=== PATIENT | female | born 1950 | race Caucasian/White ===

== ENCOUNTER 2016-12-22 17:01 | Inpatient (IN) | payer BC, OTHER ==
[~2016-12-22] VITALS: Ht 170.2 cm; Wt 83.0 kg
--- NOTE | ~2016-12-22 | EKG ---
[address] [address] ELECTROCARDIOGRAM REPORT Name: JOSEEFRANSISCO Room #: 206- ADM IN M.R.#: [id number] Admission: 12/22/16 Attend Phys: Arturo Martinez MD, Discharge: Date of : 54 Report #: [id number] THIS REPORT FOR: //name// 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: val : 1950 Requested By: Arturo Martinez Order Number: [id number] MD: Lui Doyle Measurements Intervals [place] Rate: 68 P: 26 LA: 174 QRS: -50 QRSD: 111 T: -50 QT: 494 QTc: 526 Interpretive Statements Sinus rhythm Abnormal R-wave progression, late transition Inferior infarct, recent Prolonged QT interval No previous ECG available for comparison Electronically Signed On 12-23-2016 9:20:04 CDT by Lui Doyle [email or web address] <ELECTRONICALLY SIGNED> By: Lui Doyle MD, [facility] 12/23/16919 0707 6 Lui Doyle MD, [facility] /EPI
--- NOTE | ~2016-12-22 | CATHLAB ---
[facility] [address] [place] [address] INVASIVE PROCEDURE REPORT Name: FRANSISCO TRIPP Room #: 206-P [facility] IN ..#: [id number] Admission: 12/22/16 Attend Phys: Arturo Martinez, Discharge: Date of : 54 Date of Service: 12/22/16 1833 Report #: [id number] THIS REPORT FOR: //name// CC: Charlie Martinez DATE OF SERVICE: 12/22/2016 PROCEDURES: Left ventriculography, coronary angiography, abdominal aortography, PTCA stent emergently of the dominant right acute infarct vessel. DESCRIPTION OF PROCEDURE: The patient brought to the film laboratory technician having approximately 2-3 hours into an acute inferior wall myocardial infarction. Right groin prepped and draped in sterile manner. 1% Xylocaine was used for local anesthesia. IV Versed was given for conscious sedation. A 6-Spanish sheath in right femoral artery over the wire. Initially, a straight pigtail catheter performed a single ESPINAL arteriogram and AP aortogram. LV function with moderate amount of inferior wall hypokinesis and there was moderate mitral insufficiency at least 3+. I am not sure if this is possibly ischemic induced. No prior cardiac history . FL4 for left coronary system, FR4 for the right coronary system. Multiple views and obliques were taken. Significant disease involving the left system, the circumflex is occluded and nondominant moderate disease throughout the LAD diagonal system, relatively small in caliber. JR4 for the right coronary which was a large, dominant system. There was somewhat of an atypical accessory PDA branch that was patent and then the large PDA distal right was occluded with no flow utilized. A JR4 guide, 0.014 Luge wire, heparin, Integrilin boluses. Initially had some hypotension, responded to some fluids. I placed a 2.5 balloon over a 0.014 Luge wire. With some difficultly, I was able to cross the lesion and then dilated it with a long area of significant disease just proximal to the bifurcation of the large PDA and KADEN. As I stated there also appeared to be an accessory PDA. I then exchanged over the wired magnet for a 2.75 x 26 Resolute drug-eluting stent, postdilated that up to 18 atmospheres, which is 3.1 mm in size, yielding 0% residual and SANGITA 3 grade flow. SANGITA grade 3 blush was noted in addition. The patient had some partial resolution of her EKG changes. She was comfortable and improving in her discomfort. Still had some ST elevation noted, but there are no other areas for intervention. The patient's vascular sheath is secured. ACT was 250. Integrilin drip is maintained. HEMODYNAMICS: Aortic 124/80, LV 130/14 although pressure currently is 100/60. IMPRESSION: 1. Successful emergent percutaneous transluminal coronary angioplasty stent of the distal right coronary artery with totally occluded distal vessel, placement of a 2.75 x 26 drug-eluting stent, 3.1 mm of Resolute, mild disease otherwise on [address] [address] INVASIVE PROCEDURE REPORT Name: FRANSISCO TRIPP Room #: 206-P [facility] IN M.R.#: [id number] Admission: 12/22/16 Attend Phys: Arturo M. Michelle, Discharge: Date of : 54 Date of Service: 12/22/161832 Report #: [id number] this very large dominant system and SANGITA grade 3 blush was noted throughout the entire inferior wall, some partial filling of the marginal branch. 2. The circumflex is totally occluded proximally, is nondominant. 3. The left main is well preserved. 4. The left anterior descending has moderate disease throughout the left anterior descending and diagonal. this is a 50-60% mid vessel, but relatively small in caliber. 5. Normal left ventricular size with inferior basilar hypokinesis, EF 45% with 3+ mitral regurgitation. 6. Abdominal aorta is intact, mildly ectatic. The left renal artery appears to have moderate amount of fibromuscular disease. Right renal artery has mild disease. RECOMMENDATIONS: We are going to continue aggressive risk factor modification. We will watch hemodynamics regarding this MR. We will hold on diuretics right now due to marginal blood pressure, hold on ARBs, transfer to CCU in improving condition, still guarded; O2 sat on room air is 96%. Thank you for asking us to assist in the care of this patient. <ELECTRONICALLY SIGNED> By: Arturo Martinez MD, FACC 12/23/16 0903 32 06 Arturo Martinez MD, FACC /nt
--- NOTE | ~2016-12-22 | 2DMMODE ---
[facility] [place] [address] 2 D/M-MODE ECHOCARDIOGRAM Name: FRANSISCO TRIPP Room #: 206-P [facility] IN .R.#: [id number] Admission: 12/22/16 Attend Phys: Arturo Martinez, Discharge: Date of : 54 Date of Service: 12/23/16 1127 Report #: [id number] THIS REPORT FOR: //name// APPROVED REPORT EXAM: Comprehensive 2D, Doppler, and color-flow Echocardiogram Patient Location: Bedside Blood Pressure: 89/52 mmHg HR: 66 bpm Rhythm: NSR Other Information Study Quality: Good Indications COPD Acute [place] Hypertension/HDD 2D Dimensions LVEF(%): 40.18 (>50%) IVSd: 9.76 (7-11mm) LVOT Diam: 20.00 (18-24mm) LVDd: 58.27 mm PWd: 9.51 (7-11mm) Ascending Aorta: 27.51 mm LVDs: 46.67 (25-40mm) Beck's LVEF: 40.18 % Volumes Left Atrial Volume (Systole) Single Plane 4CH: 68.71 mL Single Plane 2CH: 54.57 mL LA ESV Index: 36.00 mL/m2 Aortic Valve AoV Peak Aba.: 1.44 m/s AO Peak Gr.: 8.68 mmHg LV Max P.96 mmHg LV Max: 0.70 m/s Mitral Valve MV PHT: 72.34 ms MV E Max Aba.: 0.81 m/s E/A Ratio: 0.7 MV A Aba.: 1.12 m/s MV Decel. Time: 249.44 ms [facility] [place] [address] [place] [address] 2 D/M-MODE ECHOCARDIOGRAM Name: FRANSISCO TRIPP Room #: [address] [place] [address] [place] [facility].#: [id number] Admission: 12/22/16 Attend Phys: Arturo Martinez, Discharge: Date of : 54 Date of Service: 12/23/16 1127 Report #: [id number] Max Aba.: 5.32 m/s Pulmonary Valve PV Peak Aba.: 0.97 m/s PV Peak Gr.: 3.78 mmHg Tricuspid Valve RAP Estimate: 5.00 mmHg Left Ventricle Left ventricle is borderline dilated. Hypokinesis of the inferior, and inferolateral lynch There is normal left ventricular wall thickness. Mild-moderate left ventricular dysfunction. LVEF is 45%. Transmitral Doppler flow pattern suggests impaired LV relaxation. Right Ventricle The right ventricle is normal size. The right ventricular systolic function is normal. Atria The left atrium size is normal. The right atrium size is normal. Aortic Valve The Aortic valve is mildly calcified. No aortic regurgitation is present. There is no aortic valvular stenosis. Mitral Valve The mitral valve is normal in structure. Moderate mitral regurgitation. Tricuspid Valve The tricuspid valve is normal in structure. There is no tricuspid valve regurgitation noted. Pulmonic Valve The pulmonary valve is normal in structure. Trace pulmonic regurgitation. Great Vessels The aortic root is normal in size. IVC is normal in size and collapses >50% with inspiration. Pericardium There is no pericardial effusion. [facility] [address] [place] [address] 2 D/M-MODE ECHOCARDIOGRAM Name: FRANSISCO TRIPP Room #: [facility] IN ..#: [id number] Admission: 12/22/16 Attend Phys: Arturo Martinez, Discharge: Date of : 54 Date of Service: 12/23/16 112 Report #: [id number] <Conclusion> Mild-moderate left ventricular dysfunction. Grade I diastolic dysfunction Hypokinesis of the inferior, and inferolateral lynch. LVEF 45%. The Aortic valve is mildly calcified, no stenosis or insufficiency. The mitral valve is normal in structure. Moderate mitral regurgitation. Pulmonary artery could not be reliably ascertained. There is no pericardial effusion. <ELECTRONICALLY SIGNED> By: Lui Doyle MD, [facility] 12/23/16 1127 1127 1127 Lui Doyle MD, FACC /INF
--- NOTE | ~2016-12-22 | EKG ---
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: RANJIT : 1950 Requested By: Rebecca Bautista Order Number: [id number] MD: Lui Doyle Measurements Intervals [place] Rate: 70 P: 71 ID: 66 QRS: 93 QRSD: 123 T: 97 QT: 509 QTc: 550 Interpretive Statements Second degree AV block Supraventricular bigeminy Inferoposterior infarct, acute (RCA) Probable RV involvement, suggest recording right precordial leads No previous ECG available for comparison Electronically Signed On 12-23-2016 9:15:23 CDT by Lui Doyle [email or web address] <ELECTRONICALLY SIGNED> By: Lui Doyle MD, [facility] 12/23/16 0915 170 170 Lui Doyle MD, [facility] /EPI
--- NOTE | ~2016-12-22 | H ---
[facility] [place] [address] HISTORY AND PHYSICAL Name: JOSEEFRANSISCO HARMON Konstantin Room #: 206-P ADM IN M.R.#: [id number] Admission: 12/22/16 Attend Phys: Arturo Martinez MD, Discharge: Date of : 54 Report #: [id number] THIS REPORT FOR: //name// CC: Charlie Martinez DATE OF SERVICE: 12/22/2016 HISTORY OF PRESENT ILLNESS: A 66-year-old female who does not have prior cardiac history, presented after feeling poorly after making lunch today approximately 3:30, substernal chest pressure associated with shortness of breath and diaphoresis. It did not relieve. She had had a couple of episodes last week, which she thought were GI in origin, but nothing to this degree and has no prior cardiac history. She presents with an acute inferior wall myocardial infarction with significant ST elevation in the inferior leads, reciprocal changes are noted anteriorly 4-[address] elevation, relatively hemodynamically stable, some intermittent heart block and bradycardia, but currently the pulse is in the 60s. She is alert with moderate discomfort. She takes only losartan, has been intolerant of statins due to myalgias. PAST MEDICAL HISTORY: Positive for hypertension, hypercholesterolemia, tobacco use, mild COPD, a recent fall, so has significant lower extremity injuries and rib fractures. This actually dates back to July, but still having issues. This has limited her exercise. SOCIAL HISTORY: She is , 2 children. No alcohol. Has intermittently smoked over the last 40 years, currently is smoking. FAMILY HISTORY: Mother was followed by my partner, Dr. Meek. Had coronary issues in her 60s or 70s. She was not sure. REVIEW OF SYSTEMS: Essentially negative except for the musculoskeletal issues from the fall in July. PHYSICAL EXAMINATION: VITAL SIGNS: Pulse 70s. HEENT: Eyes reveal xanthelasmas. Pharynx is clear. NECK: Shows preserved upstrokes without JVD or bruits. LUNGS: Clear with slight prolonged phase. CARDIOVASCULAR: Regular rate and rhythm, S1, S2. There is some irregularity there early PACs on the monitor. ABDOMEN: Soft, slightly protuberant, nontender. EXTREMITIES: Reveal no edema. Distal pulses were intact. NEUROLOGIC: Nonfocal. SKIN: Warm and dry without xanthoma or ulcer. [facility] [address] [place] [address] HISTORY AND PHYSICAL Name: FRANSISCO TRIPP Room #: 206-P [facility] IN M.R.#: [id number] Admission: 12/22/16 Attend Phys: Arturo Martinez MD, Discharge: Date of : 54 Report #: [id number] MUSCULOSKELETAL: Left knee does have some decreased range of motion from the fall. ASSESSMENT: 1. Acute inferior wall myocardial infarction. 2. Hypercholesterolemia. 3. Hypertension. 4. Mild chronic obstructive pulmonary disease with continued tobacco use. 5. Family history of premature coronary artery disease. RECOMMENDATIONS AND PLAN: Heparin, aspirin and Lipitor 80 have been given. We will proceed to the catheterization lab to delineate the anatomy. Risks, benefits, alternatives were discussed with the patient and her . Thank you for asking us to assist in the care of this patient. <ELECTRONICALLY SIGNED> By: Arturo Martinez MD, FACC 12/23/16 0904 1744 1834 Arturo Martinez MD, FACC /nt
[~2016-12-22 17:01] MED LIST: COZAAR 50 MG TA50 M2 PO; HYDROCODONE-AP1 EAC6 PO; LIDODERM 5%1 PATC1 TRANSDERM; LIPITOR10 MG PO
[2016-12-22 17:26] LABS: HEMATOCRIT 49.3 % (37.0-47.0); MCH 29.7 pg (26.0-34.0); MCHC 34.5 g/dL (28.0-37.0); RBC 5.73 mil/uL (4.20-5.00); RDW 14.6 % (10.5-14.5); WBC 13.8 thou/uL (4.0-11.0)
[2016-12-22 17:33] LABS: ANION GAP 7 mmol/L (7-16); BUN 20 mg/dL (7-18); CHLORIDE 102 mmol/L (98-107); CO2 27 mmol/L (21-32); CREATININE 1.2 mg/dL (0.6-1.3); GLUCOSE 214 mg/dL (70-99); SODIUM 136 mmol/L (136-145)
[2016-12-22 17:40] LABS: ALBUMIN 3.4 g/dL (3.4-5.0); ALKALINE PHOSPHATASE 98 U/L (46-116); SGOT 18 U/L (15-37); SGPT 22 U/L (30-65); TOTAL BILIRUBIN 0.4 mg/dL (<0.1-1.0); TOTAL PROTEIN 7.5 g/dL (6.4-8.2); TROPONIN-I < 0.04 ng/mL (<0.04-0.07)
[2016-12-22 19:38] VITALS: BP 142/89
[2016-12-22 23:25] VITALS: BP 116/80
[2016-12-23] VITALS (7 sets, daily range): BP systolic 89–108; BP diastolic 50–72
[2016-12-23] MEDS ORDERED: CENTRUM SILVER1 EAC4 PO (00:50)
[2016-12-23 03:51] LABS: HEMATOCRIT 40.5 % (37.0-47.0); MCHC 34.8 g/dL (28.0-37.0); RBC 4.71 mil/uL (4.20-5.00); RDW 14.5 % (10.5-14.5); WBC 12.4 thou/uL (4.0-11.0)
[2016-12-23 03:56] LABS: HEMOGLOBIN 14.1 gm/dL (12.0-15.0)
[2016-12-23 04:25] LABS: ANION GAP 11 mmol/L (7-16); BUN 21 mg/dL (7-18); CALCIUM 8.9 mg/dL (8.5-10.1); CHLORIDE 104 mmol/L (98-107); CHOLESTEROL 182 mg/dL (<200); CO2 20 mmol/L (21-32); CREATININE 0.8 mg/dL (0.6-1.3); GLUCOSE 212 mg/dL (70-99); HDL CHOLESTEROL 27 mg/dL (>40); LDL CHOLESTEROL 83 mg/dL (<100); POTASSIUM 3.6 mmol/L (3.5-5.1); SODIUM 135 mmol/L (136-145); TC:HDL 6.7 Ratio (Not establshd); TRIGLYCERIDE 360 mg/dL (<150); VLDL 72 mg/dL (<40)
[2016-12-23 04:34] LABS: SERUM ASSESSMENT Slight Lipemia
[2016-12-23 05:23] LABS: TROPONIN-I 162.43 ng/mL (<0.04-0.07)
[2016-12-24 04:00] VITALS: BP 80/55
[2016-12-24 07:30] VITALS: BP 91/45; BP 97/45
[2016-12-24 12:20] VITALS: BP 109/69
[2016-12-24 16:00] VITALS: BP 97/70
[2016-12-24 19:38] VITALS: BP 120/66
[2016-12-25 00:40] VITALS: BP 110/52
[2016-12-25 03:19] VITALS: BP 96/48
[2016-12-25] MEDS ORDERED: METOPROLOL SUCC25 M1 PO (07:45)
[2016-12-25] MEDS ORDERED: ASPIRIN325 PO (07:45)
[2016-12-25] MEDS ORDERED: EFFIENT10 MG PO (07:45)
[2016-12-25] MEDS ORDERED: ATORVASTATIN CA40 MG PO (07:45)
[2016-12-25] MEDS ORDERED: LIVALO4 MG PO (08:09)
[2016-12-25 08:28] VITALS: BP 108/65
[2016-12-25] MEDS ORDERED: COZAAR 50 MG TA50 M2 PO (10:08)
[2016-12-25 10:45] VITALS: BP 108/65
[2016-12-25 10:49] VITALS: BP 108/65
== END 2016-12-25 11:24 | disposition home or self-care (01) | DRG 247 ==
LOC: ER 17:01 → 2N 17:46 → EROBS 18:30 → 2N 18:30
PROVIDERS: Internal Medicine Cardiovascular Disease; Physician Assistant
PROC: B2111ZZ Fluoroscopy of Multiple Coronary Arteries using Low Osmolar Contrast (ICD-10-PCS; principal; 2016-12-22)
PROC: 4A023N7 Measurement of Cardiac Sampling and Pressure, Left Heart, Percutaneous Approach (ICD-10-PCS; principal; 2016-12-22)
PROC: B4101ZZ Fluoroscopy of Abdominal Aorta using Low Osmolar Contrast (ICD-10-PCS; principal; 2016-12-22)
PROC: B2151ZZ Fluoroscopy of Left Heart using Low Osmolar Contrast (ICD-10-PCS; principal; 2016-12-22)
PROC: 027034Z Dilation of Coronary Artery, One Artery with Drug-eluting Intraluminal Device, Percutaneous Approach (ICD-10-PCS; principal; 2016-12-22)
DX: I21.19 ST elevation (STEMI) myocardial infarction involving other coronary artery of inferior wall (principal); I47.2 Ventricular tachycardia; E78.00 Pure hypercholesterolemia, unspecified; I10 Essential (primary) hypertension; F17.210 Nicotine dependence, cigarettes, uncomplicated; R73.03 Prediabetes; I34.0 Nonrheumatic mitral (valve) insufficiency; J44.9 Chronic obstructive pulmonary disease, unspecified; Z91.81 History of falling; Z87.81 Personal history of (healed) traumatic fracture; Z82.49 Family history of ischemic heart disease and other diseases of the circulatory system; Z88.8 Allergy status to other drugs, medicaments and biological substances; Z79.899 Other long term (current) drug therapy
CPT/HCPCS: 10194